=== PATIENT | female | born 1950 | race African-American/Black ===

== ENCOUNTER 2018-07-13 09:36 | Inpatient (IN) ==
[2018-07-13] MEDS ORDERED: LOPRESSOR IV ONE (10:12)
--- NOTE | 2018-07-13 10:24 | EKG Report ---
Test Performed on : 07/13/2018 09:23:50 AM Test Reason : cp Blood Pressure : / mmHG Vent. Rate : 101 BPM Atrial Rate : 101 BPM P-R Int : 158 ms QRS Dur : 076 ms QT Int : 362 ms P-R-T Axes : 020 -48 -30 degrees QTc Int : 469 ms Poor data quality, interpretation may be adversely affected Sinus tachycardia. with premature atrial complexes. Left anterior fascicular block Minimal voltage criteria for LVH, may be normal variant Cannot rule out Inferior infarct (masked by fascicular block?) , age undetermined Cannot rule out Anterior infarct , age undetermined Abnormal ECG When compared with ECG of 28-NOV-2014 17:55, Significant changes have occurred Unconfirmed Result
[2018-07-13 10:33] LABS: EOS% 6.1 % (0.0-10.0); HEMOGLOBIN 11.7 g/dL (12.0-16.0); LYMPH% 22.9 % (20.5-51.1); MCH 26.2 PG (27-31); MCHC 32.5 g/dL (33-37); MCV 80.7 FL (81-99); MONO% 6.5 % (1.7-9.3); MPV 11.4 FL (7.4-10.4); PLT 260 X1000 (130-400); RBC 4.46 XMIL (4.2-5.4); RDW 15.9 % (11.5-14.5); WBC 6.02 X1000 (4.8-10.8)
[2018-07-13 10:34] LABS: BASO# 0.02 X1000 (0.0-0.2); BASO% 0.3 % (0.0-0.8); EOS# 0.37 X1000 (0.0-0.7); IMM GRAN# 0.01 X1000 (0.0-0.04); IMM GRAN% 0.2 % (0.0-0.5); LYMPH# 1.38 X1000 (1.2-3.4); MONO# 0.39 X1000 (0.11-0.59); NEUT# 3.85 X1000 (1.4-6.5)
[2018-07-13] MEDS ORDERED: ZOFRAN IV ONE (11:09)
[2018-07-13] MEDS ORDERED: MORPHINE IV ONE (11:09)
[2018-07-13 11:23] LABS: AGAP 13; ALBUMIN 3.9 g/dL (3.5-5.0); ALKALINE PHOSPHATASE 86 U/L (32-104); BUN 11 mg/dL (8-22); CALCIUM 9.3 mg/dL (8.8-10.2); CHLORIDE 102 mmol/L (98-107); COSMO 279; CREATININE 0.7 mg/dL (0.5-0.9); ESTIMATED GFR > 60; GLUCOSE 109 mg/dL (70-104); GOT 16 U/L (10-30); GPT < 5 U/L (10-36); MAGNESIUM 1.7 mg/dL (1.5-2.7); POTASSIUM 3.3 mmol/L (3.5-5.1); SODIUM 140 mmol/L (136-145); TCO2 25 mmol/L (25-35); TOTAL PROTEIN 8.2 g/dL (6.3-8.3)
[2018-07-13 11:27] LABS: INR 1.06; PROTIME 14.3 Seconds (11.0-16.0)
--- NOTE | 2018-07-13 11:33 | Diag Imaging Result Doc PS360 ---
EXAM: CHEST-PORTABLE 07/13/2018 HISTORY: cp TECHNIQUE: AP portable at 1127 COMMENT: The inspiration is suboptimal. Considering the degree of inspiration and technical differences there has been no significant change since 04/20/2018. IMPRESSION: Stable chest. Electronically signed by Benjamín Ku 07/13/2018 11:31 AM
[2018-07-13 12:01] LABS: PTT 41.6 Seconds (22.3-41.8)
[2018-07-13] MEDS ORDERED: TORADOL IM ONE (15:03)
[2018-07-13] MEDS ORDERED: VANCOMYCIN IV PER PHARMACY MISC SCH (16:59)
[2018-07-13] MEDS ORDERED: VANCOMYCIN 1,650 MG in NS 250 ML IV ONE (18:00)
[2018-07-13] MEDS ORDERED: NS 1,000 ML IV ONE (18:19)
[2018-07-13] MEDS: NS 1,000 ML IV SCH (18:35)
[2018-07-13] MEDS: ZOSYN 3.375 GM in NS 50 ML IV SCH ×2 (18:37→22:40)
[2018-07-13] MEDS: NICODERM PATCH TD PRN (19:39)
[2018-07-13] MEDS: PERCOCET-10 PO PRN (19:39)
[2018-07-14] MEDS: PERCOCET-10 PO PRN ×3 (00:30→19:35)
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
[2018-07-14 03:26] LABS: BILIRUBIN URINE NEGATIVE (NEGATIVE); BLOOD URINE NEGATIVE (NEGATIVE); CLARITY SL. CLOUDY (CLEAR); COLOR YELLOW; GLUCOSE URINE NEGATIVE (NEGATIVE); KETONE URINE NEGATIVE (NEGATIVE); LEUKOCYTES URINE NEGATIVE (NEGATIVE); NITRITE URINE NEGATIVE (NEGATIVE); PROTEIN URINE NEGATIVE (NEGATIVE); SP GRAVITY URINE 1.005; URINE SOURCE CLEAN CATCH; UROBILINOGEN URINE NORMAL
[2018-07-14 03:40] LABS: UR AMPHETAMINES QUAL NONE DETECTED (NONE DETECT); UR BARBITUATES QUAL NONE DETECTED (NONE DETECT); UR BENZODIAZEPIN QUAL NONE DETECTED (NONE DETECT); UR CANNABINOIDS QUAL NONE DETECTED (NONE DETECT); UR COCAINE QUAL PRESUMPTIVE POSITIVE (NONE DETECT); UR METHADONE QUAL NONE DETECTED (NONE DETECT); UR METHAMPHETAMINE QUAL NONE DETECTED (NONE DETECT); UR OPIATES QUAL PRESUMPTIVE POSITIVE (NONE DETECT); UR OXYCODONE QUAL PRESUMPTIVE POSITIVE (NONE DETECT); UR PCP QUAL NONE DETECTED (NONE DETECT); UR PROPOXYPHENE QUAL NONE DETECTED (NONE DETECT); UR TCA QUAL NONE DETECTED (NONE DETECT)
[2018-07-14 04:15] LABS: URINE BACTERIA NEGATIVE /HFP; URINE EPITHELIAL CELLS <10 /HPF (<10); URINE RBC <10 /HPF (<10); URINE WBC <10 /HPF (<10)
[2018-07-14] MEDS: NS 1,000 ML IV SCH ×3 (06:12→17:37)
[2018-07-14] MEDS: ZOSYN 3.375 GM in NS 50 ML IV SCH ×3 (06:12→17:37)
[2018-07-14 06:25] LABS: BASO# 0.01 X1000 (0.0-0.2); BASO% 0.2 % (0.0-0.8); EOS# 0.53 X1000 (0.0-0.7); EOS% 13.1 % (0.0-10.0); HEMATOCRIT 34.3 % (37.0-47.0); HEMOGLOBIN 10.9 g/dL (12.0-16.0); LYMPH# 0.72 X1000 (1.2-3.4); LYMPH% 17.7 % (20.5-51.1); MCH 26.1 PG (27-31); MCHC 31.8 g/dL (33-37); MCV 82.1 FL (81-99); MONO# 0.32 X1000 (0.11-0.59); MONO% 7.9 % (1.7-9.3); MPV 11.5 FL (7.4-10.4); NEUT# 2.48 X1000 (1.4-6.5); NEUT% 61.1 % (42.2-75.2); PLT 233 X1000 (130-400); RBC 4.18 XMIL (4.2-5.4); RDW 15.8 % (11.5-14.5); WBC 4.06 X1000 (4.8-10.8)
[2018-07-14 06:41] LABS: AGAP 11; BUN 11 mg/dL (8-22); CALCIUM 8.5 mg/dL (8.8-10.2); CHLORIDE 104 mmol/L (98-107); COSMO 279; CREATININE 0.6 mg/dL (0.5-0.9); ESTIMATED GFR > 60; GLUCOSE 99 mg/dL (70-104); MAGNESIUM 1.6 mg/dL (1.5-2.7); POTASSIUM 3.3 mmol/L (3.5-5.1); SODIUM 140 mmol/L (136-145); TCO2 25 mmol/L (25-35)
--- NOTE | 2018-07-14 13:17 | ECHO REPORT ---
ORDER DATE: 07/13/2018 INDICATION: Supraventricular tachycardia. Osteomyelitis. Chronic obstructive pulmonary disease. FINDINGS: 1. Right atrium appears normal in size at 3.6 cm. Mild tricuspid regurgitation. RV systolic pressure 37. 2. Normal RV size and systolic function. 3. Trace pulmonic insufficiency. 4. Normal left atrial size at 3.5 cm. 5. No mitral valve prolapse. Mild mitral regurgitation. No evidence of mitral stenosis. 6. Normal LV size, end-diastolic dimension of 4.4. Mild left ventricular hypertrophy with a posterior and interventricular septal wall thickness 1.2 and 1.3 cm respectively. Normal LV systolic function with a calculated EF of 66%, with normal wall motion. 7. Aortic valve opens well. There is no evidence of stenosis or insufficiency. 8. The aorta appears normal in visualized segments. 9. No pericardial effusion seen. cc: MD Garett Garcia MD
[2018-07-14] MEDS: ZOFRAN IV PRN (13:22)
[2018-07-14] MEDS: VANCOMYCIN 1,350 MG in NS 250 ML IV SCH (21:05)
--- NOTE | 2018-07-14 21:54 | PROGRESS NOTE ---
DATE: 07/14/2018 SUBJECTIVE: The patient notes that her palpitations are better. Denies any fevers or chills. Denies any current chest pains or palpitations. PHYSICAL EXAMINATION: Vital Signs: Temperature 97.8 degrees, pulse 91, respiratory 27, BP 158/88. General: The patient is in no current respiratory distress. Pleasant to talk with. HEENT: Normocephalic. Neck: Supple. Cardiovascular: Regular rate. No apparent murmurs. Chest: Clear, nonlabored. Abdomen: Soft, nondistended. Extremities: Moves all extremities. ASSESSMENT: 1. Chest pain, appears resolved. 2. Hypertension. 3. Supraventricular tachycardia, resolved spontaneously. 4. Chronic obstructive pulmonary disease, stable. 5. History of chronic osteomyelitis of the right hip with a history of methicillin-resistant Staphylococcus aureus. She is being monitored by Dr. Rodriguez. Currently on oral Keflex. Culture and sensitivity currently still pending. 6. Recent compression fracture, T3 and T9. 7. Iron deficiency anemia. 8. History of an apparent concurrent use of cocaine as her urine drug screen was positive. PLAN: We will transition the patient to the floor as her heart rates have been stable, as have her blood pressures. We will continue antibiotics and await culture and sensitivity return on her right hip. Again, discussed with patient that it is highly probable that her recent cocaine use is the cause of her palpitations and supraventricular tachycardia, and certainly should consider a less dangerous avenues for her extracurricular activities. cc: Garett Post MD
[2018-07-15] MEDS: PERCOCET-10 PO PRN ×4 (02:15→21:37)
[2018-07-15] MEDS: NS 1,000 ML IV SCH ×2 (05:57→17:08)
[2018-07-15] MEDS: ZOSYN 3.375 GM in NS 50 ML IV SCH ×5 (05:57→17:08)
[2018-07-15] MEDS ORDERED: KLOR-CON PO ONE (10:56)
--- NOTE | 2018-07-15 15:04 | PROGRESS NOTE ---
DATE: 07/15/2018 SUBJECTIVE: Patient has several complaints. She has an ostomy bag over her right chronic indwelling wound which is draining kind of greenish mucopurulent drainage but apparently she says it has been doing that for 6 years. She is seen by Dr. Rodriguez. She is on treatment for that. OBJECTIVE: Vital signs: Blood pressure 176/82, heart rate 86, respiratory rate 20. Cardiovascular: Regular rate and rhythm. Pulmonary: Bilateral breath sounds clear to auscultation. GI: Soft, nontender, nondistended. Bowel sounds are positive. LAB: White count is 4, hemoglobin and hematocrit 10 and 34, platelets 233,000. Potassium 3.3. Urine was negative. PROBLEMS: 1. Superficial venous thrombosis which has resolved. 2. Chronic obstructive pulmonary disease which she is still having some degree of issue from that. 3. History of cocaine use, which may have triggered superficial venous thrombosis. Will advise on those issues. 4. Compression fractures T3-T9. We will continue pain control. 5. Left breast mass. She has on exam at least a 3 cm mass, possibly larger. It feels almost like a walnut. It is mobile but it is extremely indurated, it is very hard. She is complaining of some pain. She also has a right inguinal node. 6. Disposition pending her clinical status. She will need PT. We are awaiting evaluation and we will continue to follow. I just do not think she is going to do very well on her own, but we will see how she does with her PT evaluation and follow closely. cc: Jak Chavez MD
[2018-07-15] MEDS: NICODERM PATCH TD PRN (15:21)
--- NOTE | 2018-07-15 16:28 | Diag Imaging Result Doc PS360 ---
US BREAST COMPLETE UNILAT-LT - 07/15/2018 INDICATION: breast mass, llq COMPARISON: None. No prior mammograms are available for comparison. FINDINGS: Sonographic evaluation was performed of the dominant palpable abnormality lateral left breast. There is a 3.1 x 3.3 x 1.9 cm heterogeneously hypoechoic poorly marginated mass with internal blood flow and areas of shadowing. Findings are suspicious for malignancy. Recommend bilateral diagnostic mammographic evaluation. IMPRESSION: Suspicious mass left breast. Recommend bilateral diagnostic mammography. ACR BI-RADS CATEGORY 0: NEED ADDITIONAL IMAGING EVALUATION. NOTE: The patient will be contacted by [facility] regarding the need for additional imaging. A final interpretation will follow when the workup is complete. Electronically signed by Roma Lam 07/15/2018 4:25 PM
[2018-07-15] MEDS: LACTULOSE PO SCH (21:27)
[2018-07-15] MEDS: VANCOMYCIN 1,350 MG in NS 250 ML IV SCH (21:28)
[2018-07-16] MEDS: ZOSYN 3.375 GM in NS 50 ML IV SCH ×4 (00:08→19:53)
[2018-07-16] MEDS: PERCOCET-10 PO PRN ×2 (03:23→21:13)
[2018-07-16] MEDS: LOVENOX SUBQ SCH (05:06)
[2018-07-16] MEDS: NS 1,000 ML IV SCH (06:20)
[2018-07-16 07:11] LABS: HEMATOCRIT 35.7 % (37.0-47.0); HEMOGLOBIN 11.5 g/dL (12.0-16.0); RBC 4.39 XMIL (4.2-5.4); WBC 5.22 X1000 (4.8-10.8)
[2018-07-16 07:12] LABS: BASO# 0.02 X1000 (0.0-0.2); BASO% 0.4 % (0.0-0.8); EOS# 0.54 X1000 (0.0-0.7); EOS% 10.3 % (0.0-10.0); IMM GRAN# 0.02 X1000 (0.0-0.04); IMM GRAN% 0.4 % (0.0-0.5); LYMPH# 0.87 X1000 (1.2-3.4); LYMPH% 16.7 % (20.5-51.1); MCH 26.2 PG (27-31); MCHC 32.2 g/dL (33-37); MCV 81.3 FL (81-99); MONO# 0.51 X1000 (0.11-0.59); MONO% 9.8 % (1.7-9.3); NEUT# 3.26 X1000 (1.4-6.5); NEUT% 62.4 % (42.2-75.2); PLT 232 X1000 (130-400); RDW 15.7 % (11.5-14.5)
[2018-07-16 07:28] LABS: AGAP 12; BUN 5 mg/dL (8-22); CHLORIDE 103 mmol/L (98-107); COSMO 275; CREATININE 0.6 mg/dL (0.5-0.9); ESTIMATED GFR > 60; GLUCOSE 107 mg/dL (70-104); POTASSIUM 3.4 mmol/L (3.5-5.1); SODIUM 139 mmol/L (136-145); TCO2 25 mmol/L (25-35)
[2018-07-16] MEDS: LACTULOSE PO SCH ×2 (08:11→21:09)
[2018-07-16] MEDS: NORVASC PO SCH (08:11)
[2018-07-16] MEDS: ZOFRAN IV PRN (10:35)
--- NOTE | 2018-07-16 15:08 | MAMMOGRAPHY RESULT DOCUMENT-PS ---
DIGITAL BILAT MAMMOGRAM DIAG 07/16/2018 COMPARISON: There are no comparison films TECHNIQUE: Computer aided detection imaging was used. FINDINGS: Dense breast parenchyma. Architectural distortion with masslike area of increased density in the mid left breast. No distinct mass or area of architectural distortion in the right breast. Neither breast contains suspicious calcifications. IMPRESSION: Left breast architectural distortion with masslike area highly suspicious for malignancy. ACR BI-RADS CATEGORY 5: HIGHLY SUGGESTIVE OF MALIGNANCY, APPROPRIATE ACTION SHOULD BE TAKEN. NOTE: This facility is accredited by the [employer] for Mammography. A mammogram report should not delay biopsy if a dominant or clinically suspicious mass is present. Some cancers are not identified by mammography. Adenosis and dense breasts may obscure any underlying neoplasm Electronically signed by Angel Montilla 07/16/2018 3:06 PM
--- NOTE | 2018-07-16 15:24 | Diag Imaging Result Doc PS360 ---
EXAM: US BREAST LIMITED UNILAT-LT HISTORY: possible left axilla lad TECHNIQUE: Left axillary ultrasound COMPARISON: None. FINDINGS: There are small lymph nodes in the left axilla in addition to a 1.8 x 1.7 x 0.9 cm lymph node. No fluid collection. No other abnormality. IMPRESSION: Single mildly prominent lymph node in the left axilla. Electronically signed by Angel Montilla 07/16/2018 3:22 PM
--- NOTE | 2018-07-16 16:40 | PROGRESS NOTE ---
DATE: 07/16/2018 SUBJECTIVE: The patient has no major complaints. She is sitting up in bed doing okay. OBJECTIVE: Blood pressure 165/90, heart rate 90, respiratory rate 18, and temperature 98 percent on room air.Cardiovascular: Regular rate and rhythm. Pulmonary: Bilateral breath sounds. Clear to auscultation. GI: Soft, nontender, and nondistended. Bowel sounds are positive. LABORATORY DATA: White count 5, hemoglobin and hematocrit 11 and 35, and platelets 232,000, potassium 3.4. DIAGNOSTIC: Breast ultrasound shows suspicious mass in the left lower quadrant, heterogenously hypoechoic, poorly marginated. Recommended a bilateral diagnostic mammogram which she did get, and that was category 5 highly suggestive of malignancy. PROBLEM LIST: 1. Breast mass suspicious for breast cancer. I have called and Dr. Sandhu has evaluated the patient, and is going to plan to do an urgent biopsy as soon as she is released. 2. Chronic obstructive pulmonary disease. Appears to be stable. 3. Chronic osteo of the right hip, is also improving. 4. SVT, supraventricular tachycardia. She is on regular medications. DISPOSITION: Anticipate discharge soon. Her motility is fairly poor at baseline. She uses clutches because she has got chronic osteo of her right hip. We will set her up with home health and home PT, and see how she does. I am waiting on PT evaluation, but I anticipate discharge tomorrow. cc: Jak Chavez MD
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
[2018-07-16] MEDS: VANCOMYCIN 1,350 MG in NS 250 ML IV SCH (21:09)
[2018-07-17] MEDS: ZOSYN 3.375 GM in NS 50 ML IV SCH ×2 (01:09→07:47)
[2018-07-17] MEDS: NICODERM PATCH TD PRN (03:52)
[2018-07-17] MEDS: LOVENOX SUBQ SCH (05:20)
[2018-07-17] MEDS ORDERED: VANCOMYCIN 1,500 MG in NS 250 ML IV SCH ×2 (07:15→18:00)
[2018-07-17] MEDS: NORVASC PO SCH ×2 (07:47→10:58)
[2018-07-17] MEDS: PERCOCET-10 PO PRN (08:00)
[2018-07-17] MEDS: LACTULOSE PO SCH (10:58)
[2018-07-17 11:04] VITALS: BP 156/80
--- NOTE | 2018-07-18 04:24 | DISCHARGE SUMMARY ---
ADMISSION DATE: 07/13/2018 DISCHARGE DATE: 07/17/2018 ADMISSION DIAGNOSES: 1. Chest pain. 2. Hypertension. 3. History of supraventricular tachycardia. 4. Chronic osteomyelitis of the right hip with methicillin-resistant Staphylococcus aureus, followed by Dr. Rodriguez. 5. Recent compression fraction of T3 and T9. 6. Iron deficiency anemia. DISCHARGE DIAGNOSES: 1. Breast mass, suspicious for breast cancer. 2. Chronic obstructive pulmonary disease. 3. Chronic osteomyelitis of the right hip. 4. History of supraventricular tachycardia. SUMMARY OF FINDINGS: This is a 67-year-old female who presented to the emergency room with complaints of chest pain and palpitations. States she had been sitting in a chair, had a sudden onset of tachycardia, felt like her heart was going to beat out of her chest, became weak and short of breath. Attempted to stand and when she did she became lightheaded, felt like she was going to pass out so she sat back down. Stated she has had these episodes on and off for the past month or so. She had a fall on the and hit the back of her head, so she was admitted. We trended her cardiac enzymes. They were all negative x3 sets. She was noted to have found a walnut-sized mass to her left breast. We did a breast ultrasound that was suspicious for a mass in the left breast. We did a bilateral mammography that showed a left breast architectural distortion with mass-like area highly suspicious for malignancy. We did another breast ultrasound on 07/16/2018 that showed a single mildly prominent lymph node in the left axilla. General Surgery was consulted and it was decided that they would do a core needle biopsy on an outpatient basis and so it is felt that she can safely be discharged home now. Her follow-up appointments are with her primary care physician on 07/25/2018 at 11 a.m., with General surgery for the core needle biopsy on 07/23/2018 at 9:45 a.m. She will have [facility]. DISCHARGE MEDICATIONS: Norvasc 5 mg p.o. daily, Coreg 3.125 mg p.o. q.12 hours, and [place] 7.5 one p.o. q.6 hours p.r.n. All discharge instructions have been reviewed with the patient and she verbalized understanding. TIME SPENT: A 35 minute discharge. Dictated by SILVANA Pink for Jak Chavez MD cc: SILVANA Pink MD Eric Crampsey, CRNP R. Tyler Harney, MD
--- NOTE | 2018-07-18 08:38 | DISCHARGE SUMMARY ---
ADMISSION DATE: 07/15/2018 DISCHARGE DATE: 07/17/2018 DISCHARGE DIAGNOSES: 1. Breast mass suspicious for breast cancer. 2. Chronic obstructive pulmonary disease without exacerbation. 3. Chronic osteoarthritis of the right hip with methicillin-sensitive Staphylococcus aureus previously. 4. History of supraventricular tachycardia, which I think was her admission diagnosis. PROCEDURES: None. CONSULTATIONS: General Surgery. HISTORY OF PRESENT ILLNESS AND HOSPITAL COURSE: Briefly, this patient came in with SVT. Unfortunately, she had cocaine in her system, which is likely the mechanism of triggering that, and it resolved spontaneously. Her echocardiogram showed an EF of 66%. No major valvular pathology. The patient was evaluated and seemed to stabilize. She was placed on antibiotics until a culture of her right hip could be obtained, which only showed diphtheroids. She was maintained on antibiotics. This is a chronic issue. The drainage was chronic, and it did not grow out anything. She apparently takes Keflex per Dr. Rodriguez. In any case, the patient is stable. She asked me to examine her breast because she felt she had a lump there that has been there for 2 to 3 weeks. She had a very large, almost walnut sized lesion, indurated in her left lower quadrant. Her breast ultrasound was suspicious for malignancy. Her mammogram was extremely suspicious for malignancy. Dr. Sandhu was consulted and recommended outpatient biopsy as soon as possible. She has seen Dr. Corbin in the past too. In any case, she was doing well. Initially, plans were made for rehab, but she ambulated very well 150 feet with Physical Therapy. I appreciate their care. Plan was to discharge her today in stable condition. DISCHARGE MEDICATIONS: She has been on Keflex 500 b.i.d., Coreg 3.125 every 12 hours, Norvasc 5 daily, Ultram 50 t.i.d. p.r.n. pain. DISCHARGE DIAGNOSES: 1. Breast mass. 2. Supraventricular tachycardia, but possibly related to cocaine. I advised her that she cannot take the Coreg and cocaine. It will likely kill her, but I do think she needs a little bit of medications for that. FOLLOWUP: Follow up with Dr. Rodriguez We will set up followup with Dr. Osmin Sandhu as soon as possible for outpatient core needle biopsy. TIME SPENT: A 32-minute discharge. cc: Jak Chavez MD [facility]
== END 2018-07-17 13:27 | disposition home health service (06) | DRG 918 ==
LOC: P.MEDSURG 09:36 → P.ED 09:36 → SUATTDRO 15:11 → P.ICU 18:20 → P.MEDSURG 07-14 14:12
PROVIDERS: ATTEND Internal Medicine
CPT/HCPCS: 71010; 71045; 76641; 76642; 77056; 77066; 80048; 80053; 80104; 80202; 80301; 80305; 81001; 82550; 83605; 83735; 83880; 84439; 84484; 85025; 85610; 85730; 87070; 93005; 93306; 96374; 96375; 97163; 97166; 97530; 97535; 99285; A9270; G0204; G0431; G0434; G0477; J1650; J1885; J2270; J2405; J2543; J3370; J7030; J7050

== ENCOUNTER 2019-04-13 16:59 | Inpatient (IN) ==
[2019-04-13 18:19] LABS: BASO# 0.01 X1000 (0.0-0.2); BASO% 0.2 % (0.0-0.8); EOS% 6.5 % (0.0-10.0); HEMATOCRIT 34.9 % (37.0-47.0); HEMOGLOBIN 10.7 g/dL (12.0-16.0); LYMPH# 1.68 X1000 (1.2-3.4); LYMPH% 27.4 % (20.5-51.1); MCH 25.4 PG (27-31); MCHC 30.7 g/dL (33-37); MCV 82.7 FL (81-99); MONO# 0.39 X1000 (0.11-0.59); MONO% 6.4 % (1.7-9.3); MPV 10.7 FL (7.4-10.4); NEUT# 3.66 X1000 (1.4-6.5); NEUT% 59.5 % (42.2-75.2); PLT 444 X1000 (130-400); RBC 4.22 XMIL (4.2-5.4); RDW 17.5 % (11.5-14.5); WBC 6.14 X1000 (4.8-10.8)
--- NOTE | 2019-04-13 18:21 | Diag Imaging Result Doc PS360 ---
EXAM: CHEST-PORTABLE 04/13/2019 HISTORY: WEAK TECHNIQUE: Erect AP portable at 1810 COMMENT: There is borderline cardiomegaly. There is a nipple shadow over the right lower lobe. Compared to 01/19/2019 there has been no significant change. IMPRESSION: No evidence of acute disease. Electronically signed by Benjamín Ku 04/13/2019 6:19 PM
[2019-04-13] MEDS ORDERED: MORPHINE IV ONE (18:41)
[2019-04-13] MEDS ORDERED: CATAPRES PO ONE (18:44)
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
--- NOTE | 2019-04-13 19:20 | Diag Imaging Result Doc PS360 ---
EXAM: XRAY PELVIS W/HIP 2-3VW RT 04/13/2019 HISTORY: fall TECHNIQUE: Pelvis and right hip three views portable COMMENT: There is a total hip prosthesis on the right. There is apparent loosening around the stem of the prosthesis and to some extent the acetabular cup. There is heterotopic bone formation superior to the prosthesis and acetabulum. The appearance has not changed significantly since the previous study of 03/29/2019. IMPRESSION: Chronic changes of prosthetic loosening. No evidence of acute bony abnormality. Electronically signed by Benjamín Ku 04/13/2019 7:18 PM
--- NOTE | 2019-04-13 19:22 | Diag Imaging Result Doc PS360 ---
EXAM: KNEE 3 VIEWS LEFT 04/13/2019 HISTORY: RECHECK FRACTURE, 2 WEEKS TECHNIQUE: Left knee portable three views COMMENT: There is a fracture from the medial femoral epicondyle through the intercondylar notch. There is osteophyte formation in the lateral femoral condyle and tibial plateau. There is generalized soft tissue swelling. The alignment is similar to 03/29/2019. There is narrowing of the medial joint space. IMPRESSION: Fracture distal medial femur. Osteoarthritis. Electronically signed by Benjamín Ku 04/13/2019 7:20 PM
[2019-04-13] MEDS ORDERED: APRESOLINE IV PRN (20:14)
[2019-04-13] MEDS ORDERED: TYLENOL PO PRN (20:14)
[2019-04-13 20:28] LABS: URINE SOURCE CLEAN CATCH
[2019-04-13 20:31] LABS: BILIRUBIN URINE NEGATIVE (NEGATIVE); BLOOD URINE NEGATIVE (NEGATIVE); COLOR YELLOW; GLUCOSE URINE NEGATIVE (NEGATIVE); KETONE URINE NEGATIVE (NEGATIVE); LEUKOCYTES URINE NEGATIVE (NEGATIVE); NITRITE URINE NEGATIVE (NEGATIVE); PROTEIN URINE TRACE mg/dL (NEGATIVE); SP GRAVITY URINE 1.015; TURBIDITY URINE HAZY (CLEAR); UR EPITHELIAL CELLS <10 /HPF (<10); URINE BACTERIA NEGATIVE /HPF; URINE RBC <10 /HPF (<10); URINE WBC <10 /HPF (<10); UROBILINOGEN URINE NORMAL (NORMAL)
[2019-04-13 20:48] LABS: UR AMPHETAMINES QUAL NONE DETECTED (NONE DETECT); UR BARBITUATES QUAL NONE DETECTED (NONE DETECT); UR BENZODIAZEPIN QUAL NONE DETECTED (NONE DETECT); UR CANNABINOIDS QUAL NONE DETECTED (NONE DETECT); UR COCAINE QUAL NONE DETECTED (NONE DETECT); UR METHADONE QUAL NONE DETECTED (NONE DETECT); UR OPIATES QUAL NONE DETECTED (NONE DETECT); UR OXYCODONE QUAL NONE DETECTED (NONE DETECT); UR PCP QUAL NONE DETECTED (NONE DETECT)
[2019-04-13] MEDS: NS 1,000 ML IV SCH (21:24)
[2019-04-13] MEDS: MORPHINE IV PRN (21:26)
[2019-04-13] MEDS: ZOFRAN IV PRN (23:46)
[2019-04-14] MEDS: MORPHINE IV PRN ×3 (01:18→21:23)
[2019-04-14] MEDS ORDERED: TYLENOL PM PO ONE (01:23)
[2019-04-14] MEDS ORDERED: BLISTEX MEDICATED BERRY LIP BALM TOP PRN (01:30)
--- NOTE | 2019-04-14 01:39 | ED EKG INTERP ---
This chart was entered by Eva Enciso Scribe, acting as scribe for Ricardo Odell MD. EKG Interpretation - EKG Time of EKG reading by physician:: 01:35 EKG Read and Signed by:: Ricardo Odell EKG Interpretation (*Must complete 3 of following elements*): Abnormal (LAFB can not rule out septal infarct-age undetermined) Rate: 101 Rhythm: sinus tach with PACs with aberrant conduction [place]: normal QRS: RBB (incomplete), LVH (moderate voltage criteria, may be normal variant) UT Interval: normal Attestation - Physician/ PETER Attestation Patient care was provided by Advanced Practice Provider:: No The physician spent face to face time with patient:: No Advanced Practice Provider documentation review:: Supervising physician onsite and consulted in the evaluation and care of this patient. The physician did not have a face to face encounter with the patient. This chart was documented by the indicated scribe, (Eva Enciso Scribe) and accurately reflects the services I performed and decisions made by meJose R Donald C., MD, as attested by the provider's signature.
--- NOTE | 2019-04-14 01:59 | EKG Report ---
Test Performed on : 04/14/2019 01:35:05 AM Test Reason : palpitations Blood Pressure : / mmHG Vent. Rate : 101 BPM Atrial Rate : 101 BPM P-R Int : 166 ms QRS Dur : 102 ms QT Int : 376 ms P-R-T Axes : -29 -64 -19 degrees QTc Int : 487 ms Sinus tachycardia. with premature atrial complexes. with aberrant conduction. Incomplete right bundle branch block Left anterior fascicular block Moderate voltage criteria for LVH, may be normal variant Cannot rule out Septal infarct , age undetermined Abnormal ECG When compared with ECG of 12-AUG-2018 14:36, Incomplete right bundle branch block is now present Minimal criteria for Septal infarct are now present Unconfirmed Result
[2019-04-14 06:10] LABS: AGAP 11; ALB/GLOB RATIO 0.6; ALKALINE PHOSPHATASE 87 U/L (32-104); BUN 7 mg/dL (8-22); CALCIUM 8.8 mg/dL (8.8-10.2); CHLORIDE 101 mmol/L (98-107); COSMO 271; CREATININE 0.6 mg/dL (0.5-0.9); ESTIMATED GFR > 60; GLUCOSE 113 mg/dL (70-104); GOT 14 U/L (10-30); GPT 5 U/L (10-36); POTASSIUM 3.7 mmol/L (3.5-5.1); SODIUM 136 mmol/L (136-145); TCO2 24 mmol/L (25-35); TOTAL BILIRUBIN 0.19 mg/dL (0.20-1.00); TOTAL PROTEIN 7.7 g/dL (6.3-8.3)
[2019-04-14] MEDS: LOVENOX SUBQ SCH (06:31)
[2019-04-14] MEDS ORDERED: NORVASC PO SCH (09:00)
[2019-04-14] MEDS: NS 1,000 ML IV SCH (10:25)
--- NOTE | 2019-04-14 13:40 | ORTHOPAEDICS CONSULTATION ---
DATE: 04/14/2019 CONSULT FROM: Dr. Chavez. REASON FOR CONSULTATION: Left distal femur fracture. PAST MEDICAL HISTORY: 1. COPD. 2. 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 Rodriguez on long-term suppressive antibiotics. 3. Anemia. 4. SVT. 5. Hypertension. PAST SURGICAL HISTORY: Right total hip arthroplasty with revision done by Dr. Marin in [place] in early . MEDICATIONS: Accurate list is not present in the chart at this time. The patient states she is on chronic oral suppressive antibiotics by Dr. Rodriguez for her MRSA infection in the right hip. SOCIAL HISTORY: Patient lives with her sister. She smokes several cigarettes a day. Denies any alcohol or drug use. ALLERGIES: No known drug allergies. FAMILY HISTORY: Noncontributory. REVIEW OF SYSTEMS: Ten point review of system was reviewed and negative other than what is listed in history of present illness. CHIEF COMPLAINT: Left knee pain. HISTORY OF PRESENT ILLNESS: Ms Long is a 68-year-old lady who has recently sustained a left distal femur fracture after a same-level fall on 03/29/2019. She was seen in the ER at that time and was sent to [facility] for followup where she saw Dr. Downey and was placed into a control motion brace and made nonweightbearing on the left lower extremity. She presented back to the ER yesterday reporting significant pain and difficulty with mobilization and was admitted for social reasons. Orthopedic surgery was reconsulted for evaluation of the left knee. The patient states she has been wearing the control motion brace and is tolerating this well. She reports being compliant with nonweightbearing restrictions. She is able to bear weight on her right side. The patient has a right total hip that was done by Dr. Marin in [place]. She went on to have subsequent prosthetic joint infection and has been treated with chronic suppressive antibiotics by Dr. Rodriguez for the last several years. 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 She denies any changes in the hip recently regarding increased pain, drainage, fevers or chills. She states she does take oral antibiotics daily however cannot remember the name. PHYSICAL EXAM: Ms. Long is a 68-year-old female, appears well nourished, well developed, no acute distress. She is awake, alert, oriented x3. She is very polite and cooperative during examination.Vital Signs: Temperature 97.8 degrees Fahrenheit, heart rate 96, respiratory rate 18, blood pressure 190/84, O2 saturations 98% on room air. HEENT: Normocephalic and atraumatic. Respiratory: Nonlabored breathing. Cardiovascular: Regular rate and rhythm. Extremities: Examination of left lower extremity shows skin to be intact. Patient has 2+ joint effusion in the left knee. She has no erythema or warmth around the knee. She is tender to palpation of her medial femoral condyle. Nontender over the lateral aspect of the knee. Control motion brace is in place and in good position. Thigh and calf are soft and compressible. Motor is intact EHL, tibialis anterior, gastrocsoleus complex. Sensation intact to light touch L3- S1. Dorsalis pedis pulse palpable and equal bilaterally. Examination of right lower extremity shows skin intact. Patient has a draining sinus tract in the middle of her incision from her right total hip arthroplasty. She states this tract is unchanged in nature over the last several years. No pain with log roll of the hip. No pain with knee flexion extension. Motor is intact quadriceps, hamstrings, EHL, tibialis anterior, gastrocsoleus complex. Sensation intact to light touch L3-S1. Dorsalis pedis pulse palpable. IMAGING: AP and lateral views of the left knee were obtained and reviewed demonstrating a distal femoral fracture involving the medial femoral condyle. The fracture appears to be in good position and well aligned. She does have some mild interval callus formation along the medial aspect of the fracture site. AP pelvis and AP and lateral of the right hip were also obtained demonstrating a retained femoral stem and acetabular component with a constrained liner present. Hip is well reduced. She does appear to have signs of lucency around both her acetabular cup as well as femoral stem likely secondary to her chronic joint infection. No change in x-rays compared to prior films. No acute fractures. ASSESSMENT: A 68-year-old female with left distal femoral fracture involving the medial upper condyle. Three weeks out. She also has a chronic right prosthetic joint infection in the hip. PLAN: 1. Long discussion was had with the patient regarding diagnosis and treatment options with regards to the left knee. She has seen Dr. Downey for this in the past and has a followup appointment with him this coming Sunday. I encouraged her to continue to follow up with him for this. I can also see her in clinic if need be. I will plan on treating her non operatively for this fracture. It is still in good alignment. I told her she needs to continue wearing the control motion brace at all times. I want her to avoid any weightbearing on the leg likely for at least 8 weeks total. If she were to walk on it she risks displacing the fracture, which could turn this into a surgical injury. 2. Regards to the right hip, patient has no acute changes in the hip. She has had this draining sinus that has been treated on oral antibiotics for the last several years. She denies any increased pain in this hip. Dr. Marin in [place] is the one who put this in. She likely will end up needing staged revision at some point given the fact that she has a draining sinus. However, this will require a joint specialist which she will need to follow up with for that likely in [place]. She has no acute signs of sepsis or acute fractures along the right lower extremity. 3. Physical therapy to mobilize. Nonweightbearing left lower extremity in the control motion brace. She is okay to work on gentle knee range of motion. 4. Recommend chemical DVT prophylaxis. She has no increased risk factors so aspirin 325 mg daily would probably suffice. 5. Float heels at all times. 6. Appreciate hospitalist recommendations. 7. Disposition is per primary team. The patient would likely benefit from senior living facility given the fact she is living with her sister who she states cannot help her or even take care of herself. She will follow up with Dr. Downey in clinic this Sunday at her scheduled appointment. If she is unable to make this then she can follow up with me in clinic in 2 weeks with repeat x-rays of the knee. Thank you for consultation.
[2019-04-14] MEDS ORDERED: NORVASC PO ONE (18:24)
--- NOTE | 2019-04-14 19:05 | PROGRESS NOTE ---
DATE: 04/14/2019 SUBJECTIVE: The patient has no major complaints. OBJECTIVE: Blood pressure still high 190s, 170s, still not under control.Cardiovascular: Regular rate and rhythm. Pulmonary: Bilateral breath sounds clear to auscultation. GI: Soft, nontender, nondistended. Bowel sounds were positive. LABORATORY DATA: I do not think we really have anything too unusual basic looked okay, urine looked okay. CBC she is anemic which is not unusual. PROBLEM LIST: 1. Uncontrolled hypertension. We will continue to increase Norvasc and follow, reportedly there was some discussion of checking an echocardiogram although it is unclear. I think there is some concern she may have heart failure but there is not any clear evidence of heart failure. 2. Pain associated with her fracture. We will continue pain control and follow. 3. Left distal femoral fracture. She will need fpc because she is unable to take care of herself at this time but at this point there is no surgical plans so we will continue to monitor and get social work to assist us with disposition planning. cc: Jak Chavez MD
[2019-04-15] MEDS: MORPHINE IV PRN ×5 (04:45→21:02)
[2019-04-15] MEDS: NS 1,000 ML IV SCH ×2 (06:04→12:32)
[2019-04-15] MEDS: LOVENOX SUBQ SCH (06:05)
[2019-04-15] MEDS: NORCO-10 PO PRN ×2 (10:32→23:33)
[2019-04-15] MEDS: NICODERM PATCH TD PRN (10:32)
[2019-04-15] MEDS: NORVASC PO SCH (10:38)
[2019-04-15] MEDS: ZOFRAN IV PRN (12:32)
[2019-04-15 15:50] LABS: AGAP 11; BUN 8 mg/dL (8-22); CALCIUM 9.2 mg/dL (8.8-10.2); CHLORIDE 96 mmol/L (98-107); COSMO 264; CREATININE 0.6 mg/dL (0.5-0.9); ESTIMATED GFR > 60; GLUCOSE 120 mg/dL (70-104); POTASSIUM 3.7 mmol/L (3.5-5.1); SODIUM 132 mmol/L (136-145); TCO2 25 mmol/L (25-35)
--- NOTE | 2019-04-15 18:52 | PROGRESS NOTE ---
DATE: 04/15/2019 SUBJECTIVE: She really has no major complaints. OBJECTIVE: Vital Signs: Blood pressure 145/85, heart rate 95, respiratory 16, temperature 98.5 degrees, 97% on room air. Cardiovascular: Regular rate and rhythm. Pulmonary: Bilateral breath sounds. Clear to auscultation. Gastrointestinal: Abdomen was soft, nontender, nondistended. Bowel sounds are positive. LABORATORY DATA: No white count. Basic was normal. PROBLEM LIST: 1. Uncontrolled hypertension. Blood pressure is improved overall on Norvasc. 2. Distal femoral fracture. At this point is not requiring surgical intervention but she cannot weight bear. She will not be able to perform activities of daily living. I am not quite sure exactly how this transpired. She really has no help at home to help with getting around. We will continue to follow. Orthopedics is following. Pain seems adequately under control. DISPOSITION: We are looking at rehab beds. We will continue to monitor. [facility] as eccepted the patient pending insurance approval, so we are looking into that. cc: Jak Chavez MD
[2019-04-16] MEDS: LOVENOX SUBQ SCH (06:31)
[2019-04-16] MEDS: NICODERM PATCH TD PRN (09:35)
[2019-04-16] MEDS: NORVASC PO SCH (09:35)
[2019-04-16] MEDS: NORCO-10 PO PRN ×2 (09:35→16:28)
[2019-04-16] MEDS: NS 1,000 ML IV SCH (16:36)
[2019-04-16] MEDS: ZOFRAN IV PRN (18:10)
[2019-04-16] MEDS: MORPHINE IV PRN (18:10)
--- NOTE | 2019-04-16 18:10 | PROGRESS NOTE ---
DATE: 04/16/2019 SUBJECTIVE: She has no major complaints. Pain seems acceptable. She is sitting up. She is pleasant. No major issues. OBJECTIVE: Vital Signs: Blood pressure is 151/80, heart rate of 92, respiratory rate 16, temperature 97.3, saturation 97% on room air. Cardiovascular: Regular rate and rhythm. Pulmonary: Bilateral breath sounds, clear to auscultation. GI: Soft, nontender, nondistended. Bowel sounds were positive. LABORATORY DATA: Sodium is 132. PROBLEM LIST: 1. Uncontrolled hypertension that is improved. 2. Hyponatremia. May be related to her fluids. We will stop those. 3. Severe pain related to distal femoral fracture. We will continue pain control and physical therapy. Anticipate discharge soon. Waiting on rehab. DISPOSITION: Pending rehab resolution. We will continue to follow. cc: Jak Chavez MD
[2019-04-17] MEDS: MORPHINE IV PRN ×2 (06:41→14:09)
[2019-04-17] MEDS: LOVENOX SUBQ SCH (06:43)
[2019-04-17] MEDS: NORVASC PO SCH (10:12)
[2019-04-17] MEDS: NORCO-10 PO PRN (10:25)
[2019-04-17 11:26] VITALS: BP 158/83
--- NOTE | 2019-04-17 13:02 | DISCHARGE SUMMARY ---
ADMISSION DATE: 04/13/2019 DISCHARGE DATE: 04/17/2019 ADMITTING DIAGNOSES: 1. Uncontrolled hypertension. 2. Uncontrolled pain. 3. Distal femoral fracture. DISCHARGE DIAGNOSES: 1. Uncontrolled hypertension, resolved. 2. Hyponatremia, improved. 3. Severe pain related to distal femoral fracture. CONSULTATIONS: Oscar Corona MD. PROCEDURES AND FINDINGS: Knee x-ray done on 04/13/2019 does show a fracture to the distal medial femoral. X-rays of the hip and pelvis on the right done on 04/13/2019 shows chronic changes of the prosthetic loosening, no evidence of acute bony abnormality. Chest x-ray done on 04/13/2019 shows no evidence of acute disease. Wound culture done on 04/14/2019 does show diphtheroids 2+. HOSPITAL COURSE: Ms. Long is a 68-year-old female with chronic osteomyelitis of the right hip, who apparently fell and sustained a fracture around 03/29/2019. She had a femoral fracture of the distal femur of the femoral epicondyle with displacement. She was seen by Orthopedics and had a cast placed. She was suppose to be nonweightbearing at home. The patient came in to the ER with complaints of being unable to bear weight and her pain is not under control with uncontrolled hypertension. Emergency room workup was done and was noted to be unremarkable. She was admitted. Physical Therapy was consulted. The patient was started on blood pressure medication regimen of clonidine and Norvasc. Orthopedic was consulted. Dr. Oscar Corona did see the patient. He did recommend the patient follow up with Dr. Downey and maintain the brace for a total of 8 weeks to her knee. In regards to her hip, he said she may at some point need a revision, however, at this point she had no acute signs of sepsis or acute fractures. Dr. Corona did recommend the patient needed to go to a possible rehabilitation facility since the patient is unable to care for herself and she is nonweightbearing at this time and with this chronic pain. The patient's blood pressure is more controlled at this time with medications. Her pain is more controlled with p.r.n. pain medication. She is being discharged today to [facility]. The patient will continue her Lovenox 40 mg subcutaneously daily. She will also continue her hydrocodone 10 mg p.o. t.i.d. p.r.n. She will continue her Norvasc 10 mg p.o. daily. The patient will need to follow up with Dr. Hipolito Dior and Dr. Carol Syed. DISCHARGE MEDICATIONS: 1. Lovenox 40 mg subcutaneously daily. 2. Hydrocodone APAP 10 mg/325 10 mg p.o. t.i.d. p.r.n. 3. Norvasc 10 mg p.o. daily. 4. Tylenol 650 mg p.o. q.6 hours p.r.n. DISCHARGE DIET: The patient is to resume a regular diet as tolerated. DISCHARGE ACTIVITY: The patient is to resume activity per [facility]. She is to be nonweightbearing on her left lower extremity. She is okay to work on gentle knee range of motion. She is to wear a control-motion brace. DISCHARGE INSTRUCTIONS: The patient is to discharge to [facility]. She is to follow up with Dr. Carol Syed and Dr. Hipolito Dior. For all other questions and concerns, please notify the patient's saxophone player, Dr. Carol Syed. Dictated by SILVAAN Morton for Jak Chavez MD cc: Jak Chavez MD
--- NOTE | 2019-04-18 12:44 | DISCHARGE SUMMARY ---
ADMISSION DATE: 04/13/2019 DISCHARGE DATE: 04/17/2019 HISTORY: A 68-year-old female presenting with a distal medial fracture with some displacement. The patient is stabilized. She did initially have some elevated blood pressure and uncontrolled pain, but overall she has improved. Orthopedics was consulted, and felt this was nonsurgical. She had recommended nonweightbearing physical therapy. The patient progressed without difficulty. Blood pressure at time of discharge 158/83. Her exam was unremarkable. Please see the other note. cc: Jak Chavez MD
== END 2019-04-17 14:40 | DRG 534 ==
LOC: SUPCPDRO → ED 16:59 → EDIPHOLD 20:04 → 4N 04-14 06:48
PROVIDERS: ATTEND Internal Medicine